=== PATIENT | female | born 1990 | race Two or more races ===

== ENCOUNTER 2018-12-31 18:52 | Inpatient (IN) | payer BC, OTHER ==
[~2018-12-31] VITALS: Ht 160 cm; Wt 105.3 kg
[2018-12-31 19:10] VITALS: BP 114/60
[2018-12-31] MEDS ORDERED: ETOMIDATE (2MG/ML) 20ML VIAL IV ONE (19:10)
[2018-12-31] MEDS ORDERED: SUCCINYLCHOLINE CHLORIDE 20 MG/ML 10ML VIAL IV ONE (19:10)
[2018-12-31] MEDS ORDERED: MIDAZOLAM DRIP 50 mg/50mL 50 ML IV ONE ×2 (19:26→21:50)
[2018-12-31] MEDS: MIDAZOLAM DRIP 50 mg/50mL 50 ML IV SCH (19:30)
[2018-12-31] MEDS ORDERED: fentaNYL Drip 2500mCg/250mlNS 250 ML IV ONE (19:45)
[2018-12-31] MEDS: NOREPINEPHRINE 8 MG/250ML KIT 250 ML IV SCH (19:45)
[2018-12-31] MEDS: fentaNYL Drip 2500mCg/250mlNS 250 ML IV SCH (19:45)
[2018-12-31] MEDS ORDERED: NOREPINEPHRINE 8 MG/250ML KIT 250 ML IV ONE (19:45)
[2018-12-31 19:46] LABS: Basophils # (auto) 0 uL; Basophils % (auto) 0.5 % (0.0-2.0); Eosinophils # (auto) 0 uL; Eosinophils % (auto) 0.1 % (0.0-7.0); Hematocrit 40.9 % (36.0-46.0); Hemoglobin 13.7 g/dL (12.2-16.2); Lymphocytes # (auto) 1.9 uL; Lymphocytes % (auto) 21.4 % (10.0-50.0); Mean Corpuscular Hemoglobin 28.5 pg (28.0-32.0); Mean Corpuscular Hgb Conc. 33.5 g/dL (32.0-36.0); Mean Corpuscular Volume 85.2 fL (80.0-100.0); Monocytes # (auto) 0.7 uL; Monocytes % (auto) 7.7 % (0.0-12.0); Neutrophils # (auto) 6.1 uL; Neutrophils % (auto) 70.3 % (37.0-80.0); Platelet Count (auto) 290 10^3/uL (140-450); Red Cell Distribution Width 13.9 % (11.8-14.3); White Blood Cell 8.7 10^3/uL (4.4-10.8)
[2018-12-31 20:02] LABS: Acetaminophen < 2.0 ug/mL (10-30); Albumin 3.4 g/dL (3.4-5.0); Anion Gap 15 (5-15); BUN/Creatinine Ratio 9.2; Blood Urea Nitrogen 9 mg/dL (7-18); Calcium 8.7 mg/dL (8.5-10.1); Carbon Dioxide 22 mmol/L (21-32); Chloride 102 mmol/L (98-107); GFR African American 86 mL/min; GFR Non-African American 71 mL/min; Glucose 193 mg/dL (74-106); Salicylate < 1.7 mg/dL (2.8-20.0); Sodium 139 mmol/L (136-145)
[2018-12-31 20:03] LABS: INR 1.02 (0.9-1.15); Partial Thromboplastin Time 23.7 sec (23.64-32.05)
[2018-12-31] MEDS ORDERED: PROPOFOL 100 ML IV ONE (20:08)
[2018-12-31] MEDS: PROPOFOL 100 ML IV SCH (20:10)
[2018-12-31 20:11] LABS: Alanine Aminotransferase 16 U/L (13-56); Alkaline Phosphatase 77 U/L (45-117); Aspartate Aminotransferase 12 U/L (15-37); Bilirubin, Total 0.3 mg/dL (0.2-1.0)
[2018-12-31 20:15] LABS: Potassium 2.8 mmol/L (3.5-5.1)
[2018-12-31] MEDS: POTASSIUM CHL 20MEQ/100ML 100 ML IV SCH ×2 (20:30→22:30)
[2018-12-31] MEDS ORDERED: cefTRIAXone 1GM/50ML D5W 50 ML IV ONE (20:30)
[2018-12-31] MEDS ORDERED: TETANUS-DIPTH-ACEL PERTUSSIS 0.5ML SYRG IM ONE (20:30)
[2018-12-31 20:49] VITALS: BP 100/37
[2018-12-31 22:14] VITALS: BP 92/50
[2018-12-31 22:23] LABS: Urine Bacteria NONE SEEN /hpf (None Seen); Urine Blood Negative /uL (Negative); Urine Mucus FEW (None Seen); Urine Specific Gravity 1.013 (1.001-1.035); Urine WBC 1 /hpf (0 - 5)
[2018-12-31] MEDS ORDERED: MAGNESIUM SULFATE 1GM/100ML 100 ML IV ONE (22:30)
[2018-12-31 22:35] LABS: Alcohol, Urine < 3.0 mg/dL (0-5); Barbiturate Scree,Urine NEGATIVE (NEGATIVE); Benzodiazephine Screen, Urine POSITIVE (NEGATIVE); Cannabinoid Screen, Urine POSITIVE (NEGATIVE); Cocaine Screen, Urine NEGATIVE (NEGATIVE); Opiate Scree,Urine NEGATIVE (NEGATIVE); Phencyclidine Screen, Urine NEGATIVE (NEGATIVE)
[2018-12-31 22:43] LABS: Amphetamine Screen, Urine NEGATIVE (NEGATIVE)
[2018-12-31] MEDS ORDERED: LIDOCAINE 2% (LOCAL ANESTH.) PF 5ml SDV ONE (23:47)
[2018-12-31 23:59] VITALS: BP 95/47
[2019-01-01] VITALS (75 sets, daily range): BP systolic 90–142; BP diastolic 36–77
[2019-01-01] MEDS ORDERED: LIDOCAINE 2%HCL (LOCAL ANESTH.) INJ 10ml MDV IJ ONE
[2019-01-01] MEDS ORDERED: NEOMYCIN-BACITRACIN-POLYM UNITDOSE PKG TOP OINT TOP ONE (00:30)
[2019-01-01] MEDS ORDERED: MUPIROCIN 2% OINT 15gm or 22gm TOP ONE (00:30)
[2019-01-01] MEDS ORDERED: NITROGLYCERIN 0.4 MG SL TAB SL PRN (04:15)
[2019-01-01] MEDS ORDERED: ONDANSETRON HCL 4 MG/2 ML VIAL IV PRN (04:15)
[2019-01-01] MEDS ORDERED: MORPHINE SULF INJ 2 MG/ML SYRINGE 1ML IV PRN (04:15)
[2019-01-01] MEDS: SODIUM CHLORIDE 0.9% 1,000 ML IV SCH ×3 (04:40→20:30)
--- NOTE | 2019-01-01 07:05 | NUR ---
FAMILY INTERVIEW CONTINUED... FAMILY STATES THAT PATIENT OFTEN SAYS THAT THEY WOULD BE BETTER OFF WITHOUT HER. FAMILY ALSO STATES THAT PATIENT IS UNDER A PSYCHIATRIST CARE FOR BIPOLAR/MANIC DEPRESSION AND ON MEDICATION HOWEVER; FAMILY STATES THAT PATIENT IS NON-COMPLIANT WITH MEDICATIONS. REFUSING TO TAKE MEDS WHEN DUE. PER FAMILY PATIENT HAS NEVER BEEN INSTITUTIONALIZED. FAMILY STATES THAT PATIENT CAN ONLY PERFORM ADL'S WHEN NOT IN MANIC EPISODE.
--- NOTE | 2019-01-01 07:05 | NUR ---
FAMILY INTERVIEW WENT OUT INTO THE WAITING AREA TO SPEAK WITH FAMILY. MOTHER AND STEPFATHER IN WAITING AREA AT THIS TIME. PER STEPFATHER PATIENT ENTERED THEIR BEDROOM YESTERDAY AP[address]OX [address] WITH LACERATIONS TO BOTH WRISTS AND BOTTLES OF PILLS IN HER HANDS. PATIENT WAS AAOX4 AT THE TIME SPEAKING TO PARENTS LIKE NOTHING HAPPENED. FATHER TOOK PATIENT TO THE CARE AND DROVE HER TO [facility]. DURING THE DRIVE TO [facility] THE PATIENT BECAME NON RESPONSIVE FOR WHAT THE STEP DAD STATED WAS APPROXIMATELY 5 MINUTES. FAMILY STATES THAT THIS TIME PATIENT'S FIRST TIME TRYING TO COMMIT SUICIDE
--- NOTE | 2019-01-01 07:25 | NUR ---
CARE ENDORSED TO LINDA RAI ALL QUESTIONS AND CONCERNS WERE ANSWERED
[2019-01-01] MEDS: NOREPINEPHRINE 8 MG/250ML KIT 250 ML IV SCH ×3 (08:44→21:43)
--- NOTE | 2019-01-01 08:45 | NUR ---
FAMILY AT BEDSIDE BOTH PATIENT'S MOTHER AND FATHER AT BEDSIDE, UPDATED ON PATIENT'S STATUS. PATIENT'S MOTHER KEVIN STATED THEY WOULD BE GOING HOME AND RETURNING IN A COUPLE HOURS. Addendum: 01/01/19 at 1615 by Analy Silverio RN ICU VISITOR GUIDE DISCUSSED WITH FAMILY AND PAMPHLET PROVIDED. MOTHER KEVIN VERBALIZED UNDERSTANDING.
[2019-01-01 08:59] LABS: Basophils # (auto) 0 uL; Basophils % (auto) 0.5 % (0.0-2.0); Eosinophils # (auto) 0 uL; Eosinophils % (auto) 0.5 % (0.0-7.0); Hematocrit 34.1 % (36.0-46.0); Hemoglobin 11.5 g/dL (12.2-16.2); Lymphocytes # (auto) 2.1 uL; Lymphocytes % (auto) 29.1 % (10.0-50.0); Mean Corpuscular Hemoglobin 28.5 pg (28.0-32.0); Mean Corpuscular Hgb Conc. 33.7 g/dL (32.0-36.0); Mean Corpuscular Volume 84.7 fL (80.0-100.0); Monocytes # (auto) 0.8 uL; Monocytes % (auto) 10.5 % (0.0-12.0); Neutrophils # (auto) 4.3 uL; Neutrophils % (auto) 59.4 % (37.0-80.0); Platelet Count (auto) 230 10^3/uL (140-450); Red Blood Cells 4.03 10^6/uL (4.0-5.20); Red Cell Distribution Width 14.2 % (11.8-14.3); White Blood Cell 7.2 10^3/uL (4.4-10.8)
[2019-01-01 09:15] LABS: Albumin 2.6 g/dL (3.4-5.0); Anion Gap 14 (5-15); BUN/Creatinine Ratio 4.2; Blood Urea Nitrogen 3 mg/dL (7-18); Calcium 7.5 mg/dL (8.5-10.1); Carbon Dioxide 21 mmol/L (21-32); Chloride 109 mmol/L (98-107); GFR African American 125 mL/min; GFR Non-African American 103 mL/min; Glucose 108 mg/dL (74-106); Potassium 3.2 mmol/L (3.5-5.1); Sodium 144 mmol/L (136-145)
[2019-01-01 09:18] LABS: Alanine Aminotransferase 14 U/L (13-56); Alkaline Phosphatase 62 U/L (45-117); Aspartate Aminotransferase 14 U/L (15-37); Bilirubin, Total 0.3 mg/dL (0.2-1.0); Total Protein 5.5 g/dL (6.4-8.2)
[2019-01-01] MEDS: MIDAZOLAM DRIP 50 mg/50mL 50 ML IV SCH ×3 (09:56→23:22)
[2019-01-01] MEDS: PROPOFOL 100 ML IV SCH ×3 (09:56→23:14)
[2019-01-01] MEDS ORDERED: LEVOFLOXACIN 500MG 100 ML IV SCH (10:00)
[2019-01-01] MEDS ORDERED: LEVOFLOXACIN 750MG 150 ML IV SCH (10:00)
[2019-01-01] MEDS: PANTOPRAZOLE 40 MG/10 ML VIAL INJ IV SCH (10:06)
--- NOTE | 2019-01-01 10:58 | NUR ---
POISON CONTROL GABRIELLE UPDATED ON PATIENT'S STATUS. GABRIELLE IS RECOMMENDING A REPEAT SHIVA TO MEASURE QT; QT < 500 POTASSIUM > 4.0 CALCIUM > 9 MAGNESIUM > 2 GABRIELLE'S PHONE NUMBER IS . WILL DISCUSS POISON CONTROL RECOMMENDATIONS WITH HOSPITALIST.
--- NOTE | 2019-01-01 11:11 | NUR ---
MED REC VERIFIED BY PATIENT'S MOTHER.
[2019-01-01] MEDS ORDERED: LAMO150T2 PO (11:14)
[2019-01-01] MEDS ORDERED: ESCI5TAB PO (11:14)
[2019-01-01] MEDS ORDERED: RISP0.5T12 PO (11:14)
[2019-01-01] MEDS ORDERED: DIPH25CA66 PO (11:14)
--- NOTE | 2019-01-01 11:50 | NUR ---
HOSPITALIST AT BEDSIDE DR REED UPDATED ON PATIENT'S STATUS, DRIPS, LABS AND POISON CONTROL RECOMMENDATIONS. ORDERS RECEIVED AND WILL BE CARRIED OUT.
[2019-01-01] MEDS: POTASSIUM CHL 20MEQ/100ML 100 ML IV SCH ×2 (14:43→16:44)
--- NOTE | 2019-01-01 16:13 | NUR ---
IV removal IVs to bilateral feet discontinued with sterile technique, catheters fully intact. Pressure dressing applied to sites. Patient tolerated procedure well, no s/s noted of pain or discomfort.
--- NOTE | 2019-01-01 16:18 | NUR ---
FAMILY AT BEDSIDE/POISON CONTROL FAMILY MEMBERS AT BEDSIDE. GABRIELLE FROM POISON CONTROL UPDATED ON PATIENT'S STATUS.
--- NOTE | 2019-01-01 16:30 | NUR ---
NOTE LINKED SUICIDE RISK ASSESSMENT PATIENT ADMITTING DIAGNOSIS SUICIDE ATTEMPT AND OVERDOSE. UNABLE TO ASSESS AT THIS TIME - PATIENT INTUBATED AND SEDATED. Addendum: 01/01/19 at 1631 by Analy Silverio RN Amended: Links added.
--- NOTE | 2019-01-01 18:30 | NUR ---
INITIAL CONTACT ASSUMED CARE OF PATIENT PATIENT ARRIVED VIA GURNEY FROM THE ER INTUBATED AND SEDATED ON PROPOFOL, VERSED AND FENTANYL. SEE IV SPREADSHEET FOR MEDICATION AND TITRATION. PATIENT IS AAO TO SELF WILL RESPOND TO CALL OF NAME WITH UPPER BODY MOVEMENT AND TO PAINFUL STIMULATION WITH FACIAL GRIMACE. VITAL SIGNS WITHIN NORMAL LIMITS. NO S/S OF DISTRESS NOTED. PATIENT DOES NOT APPEAR TO BE IN PAIN AT THIS TIME. NOTED PIN POINT PUPILS. RIBEIRO CATHETER IN PLACE AND DRAINING TO GRAVITY, BANDAGES BILATERAL WRISTS, TRIPLE LUMEN PICC TO LEFT IJ, 20 G IV LEFT FOOT, 20 G IV RGT FOOT, 20 G IV LEFT BREAST, 20 G IV LEFT HAND, PATENT, INTACT AND ASYMPTOMATIC. OG TUBE TO LIS. VENTILATOR PLUGGED INTO RED OUTLET PER VAP PROTOCOL. AMBU BAG AT BEDSIDE, SIDE RAILS UP X TWO, PATIENT IS IN FULL VIEW OF NURSES STATION, SAFETY MAINTAINED, WILL CONTINUE TO MONITOR. PER ER NURSE ELVER, FAMILY IS THE ICU WAITING AREA. Addendum: 01/01/19 at 1957 by Korina Eddy RN INITIAL CONTACT IS INCORRECT TIME SHOULD BE 0630 (01/01/19)
--- NOTE | 2019-01-01 20:00 | NUR ---
OPEN ASSUMED CARE OF FEMALE PT ORALLY INTUBATED. PT SEDATED ON VERSED GTT15 MG/HR, AND DIPRIVAN GTT25 MCG/KG/MIN. PT DOES NOT OPEN EYES OR FOLLOW COMMANDS. PT GRIMACE TO TACTILE STIMULI, OTHERWISE NON RESPONSIVE. PT WITH OGT TO LIS WITH SMALL AMOUNT OF POSS FOOD PARTICLES DRAINING. PLACEMENT VERIFIED. SR ON BULK MAIL TECHNICIAN. LEVOPHED GTT INFUSING AT 20 MCG/MIN. L. IJ TLC IN PLACE WITH SEDATION, LEVOPHED GTT'S AND NS AT 75 ML/HR. ALL PORTS PATENT. DRESSING CDI. RIBEIRO TO GRAVITY DRAINING CLEAR YELLOW URINE. MARJORIE WRIST DRESSINGS IN PLACE OVER LACERATIONS/ WITH SUTURES INTACT. DRESSING CDI WITH NO ACTIVE BLEEDING. MARJORIE SCD'S IN PLACE. NO INDICATION OF PAIN OBSERVED. PT REPOSITIONED WITH PILLOWS USED TO OFFLOAD BONY PROMINENCES. BED IN LOWEST LOCKED POSITION. HOB ELEVATED 40 DEGREES. PT IN FULL VIEW OF RN STATION. WILL CONTINUE TO MONITOR.
--- NOTE | 2019-01-01 20:24 | NUR ---
FAMILY VISIT PT MOTHER TO UNIT FOR VISIT. PLAN OF CARE DISCUSSED.
[2019-01-01] MEDS: fentaNYL Drip 2500mCg/250mlNS 250 ML IV SCH (21:42)
[2019-01-02] VITALS (92 sets, daily range): BP systolic 92–139; BP diastolic 39–84
--- NOTE | 2019-01-02 02:30 | NUR ---
Patient bathe/linen change Patient given complete bath. Skin integrity assessed for any changes. Linens changed. Patient repositioned for comfort. HAIR WASHED AND BRUSHED.
--- NOTE | 2019-01-02 03:37 | NUR ---
NEURO TITRATING DOWN ON SEDATION. PT OBSERVED TO HAVE SOME MILD TREMOR LIKE MOVEMENTS. WILL CONTINUE TO CLOSELY MONITOR.
[2019-01-02 03:51] LABS: Basophils # (auto) 0 uL; Basophils % (auto) 0.7 % (0.0-2.0); Eosinophils # (auto) 0.1 uL; Hematocrit 35.4 % (36.0-46.0); Mean Corpuscular Hemoglobin 28.7 pg (28.0-32.0); Mean Corpuscular Volume 84.3 fL (80.0-100.0); Monocytes # (auto) 0.6 uL; Monocytes % (auto) 9.3 % (0.0-12.0); Neutrophils # (auto) 4.1 uL; Platelet Count (auto) 244 10^3/uL (140-450); Red Cell Distribution Width 14.5 % (11.8-14.3); White Blood Cell 6.8 10^3/uL (4.4-10.8)
[2019-01-02] MEDS: PROPOFOL 100 ML IV SCH (04:01)
[2019-01-02 04:36] LABS: Alanine Aminotransferase 12 U/L (13-56); Albumin 2.7 g/dL (3.4-5.0); Anion Gap 12 (5-15); Aspartate Aminotransferase 12 U/L (15-37); BUN/Creatinine Ratio 1.5; Blood Urea Nitrogen 1 mg/dL (7-18); Carbon Dioxide 20 mmol/L (21-32); Chloride 113 mmol/L (98-107); GFR African American 132 mL/min; GFR Non-African American 109 mL/min; Glucose 115 mg/dL (74-106); Potassium 3.6 mmol/L (3.5-5.1); Sodium 145 mmol/L (136-145)
[2019-01-02 04:39] LABS: Alkaline Phosphatase 66 U/L (45-117); Bilirubin, Total 0.3 mg/dL (0.2-1.0); Total Protein 5.7 g/dL (6.4-8.2)
[2019-01-02] MEDS: NOREPINEPHRINE 8 MG/250ML KIT 250 ML IV SCH (05:00)
--- NOTE | 2019-01-02 07:35 | NUR ---
Opening Shift Note Assumed care of patient, patient sedated, mechanically ventilated. No S/S of distress/SOB or pain noted. Duarte catheter patent and draining to gravity. OGT connected to LIS with minimal drainage. Fall and safety precautions in place. Will continue to monitor for changes Q1hr and PRN.
[2019-01-02] MEDS: SODIUM CHLORIDE 0.9% 1,000 ML IV SCH (08:41)
--- NOTE | 2019-01-02 09:00 | NUR ---
Family updated on pt status Family of KIRIT ROACH at bedside and updated on patient's status and condition. All questions and concerns addressed. Patient's mother Kandace verbalized understanding.
[2019-01-02] MEDS: PANTOPRAZOLE 40 MG/10 ML VIAL INJ IV SCH (10:00)
--- NOTE | 2019-01-02 10:31 | NUR ---
VOMIT PATIENT VOMIT WHITE/CHUNKY VOMITUS - ONE YELLOW PIECE OF WHAT APPEARED TO BE FOOD REMOVED FROM MOUTH. PATIENT RECOVERED AND CLEANSED. FAMILY AT BEDSIDE AND NOTIFIED, R.T. AWARE. HOSPITALIST NOTIFIED. NO ORDERS AT THIS TIME.
--- NOTE | 2019-01-02 11:56 | NUR ---
WOUND CARE NOTE: Wound care in to see patient per wound care request regarding low Edy score of 12 and intubation status , putting patient to high risk for skin breakdown. Patient is 28 y/o female with admitting diagnosis of Acute Respiratory Failure. Patient has history of depression. Patient is resting in ICU bed in Rm 105. She's intubated and mechanically ventilated. Patient appears to be in no pain using Nevarez Simon Faces Pain Scale. Skin assessment done with the assistance of patient's nurse, LINDA Beckford. No open wound noted other than bilateral wrist sutured laceration with C/D/I dressing ; reports of OD, suicidal attempt. No pressure injury noted. She's receiving BID/PRN cleaning and application of Barrier cream to sacrum as preventative with protective Opti foam sacral dressing. Repositioned patient for comfort facing her Lt. side, redistributed pressure points with pillows. Patient tolerated well. RECOMMENDATION: BID/PRN cleaning and application of Barrier cream to sacral/buttocks as preventative, Dietary consult for low Edy score, frequent turning and repositioning schedule as condition permits, redistribute pressure points with pillows, elevate heels on pillows, continue monitoring by wound care while patient is mechanically ventilated. Addendum: 01/02/19 at 1638 by Essence Lewis RN Amended: Links added.
--- NOTE | 2019-01-02 15:21 | NUR ---
POISON CONTROL ABDON UPDATED ON PATIENT'S STATUS, VS.
--- NOTE | 2019-01-02 18:00 | NUR ---
WOUND CARE TO BILATERAL WRISTS AND PICTURES TAKEN PERFORMED. SUTURE SITES CLEAN, DRY AND INTACT - NO REDNESS, SWELLING OR DRAINAGE NOTED ON BOTH WRIST SUTURE SITES. PATIENT ATTEMPTED TO PULL ETT WITHOUT MITTENS, PATIENT REORIENTED AND BILATERAL MITTENS PLACED FOR PATENT PROTECTION. PICTURE DOCUMENTATION FORMS SIGNED AND PLACED IN WOULD CARE BOX.
[2019-01-02] MEDS: LORazepam 2MG/ML-1ML VIAL IV PRN ×2 (18:15→21:30)
--- NOTE | 2019-01-02 18:16 | NUR ---
NEURO PATIENT NOT FULLY AWAKE BUT ATTEMPTING TO PULL ON ETT, PATIENT ORIENTED TO PERSON, PLACE AND SITUATION, AFTER SEVERAL ATTEMPTS TO CALM PATIENT DOWN WITH NO SUCCESS, PATIENT MEDICATED ORDERED BY PHYSICIAN.
[2019-01-02] MEDS: DexMEDEtomidine 400 MCG in D5W 5% 96 ML IV SCH (19:44)
[2019-01-03] VITALS (85 sets, daily range): BP systolic 90–145; BP diastolic 48–113
[2019-01-03] MEDS: LORazepam 2MG/ML-1ML VIAL IV PRN ×2 (00:18→03:40)
--- NOTE | 2019-01-03 00:19 | NUR ---
AGITATION PRIMARY RN ON LUNCH. PT ON PRECEDEX GTT ATTEMPTING TO GET UP FROM BED ON [facility]. VENT. MEDICATED WITH ATIVAN SIVP PER ORDER. WILL CONTINUE TO MONITOR.
[2019-01-03] MEDS: DexMEDEtomidine 400 MCG in D5W 5% 96 ML IV SCH (02:58)
[2019-01-03 03:54] LABS: Basophils # (auto) 0 uL; Basophils % (auto) 0.6 % (0.0-2.0); Eosinophils # (auto) 0.1 uL; Eosinophils % (auto) 1.7 % (0.0-7.0); Hematocrit 32.1 % (36.0-46.0); Hemoglobin 11.6 g/dL (12.2-16.2); Lymphocytes # (auto) 2.2 uL; Lymphocytes % (auto) 36.7 % (10.0-50.0); Mean Corpuscular Hemoglobin 30.4 pg (28.0-32.0); Mean Corpuscular Hgb Conc. 36.1 g/dL (32.0-36.0); Mean Corpuscular Volume 84.3 fL (80.0-100.0); Monocytes # (auto) 0.6 uL; Monocytes % (auto) 9.7 % (0.0-12.0); Neutrophils # (auto) 3.1 uL; Neutrophils % (auto) 51.3 % (37.0-80.0); Nucleated Red Blood Cells % 0.2 %; Platelet Count (auto) 240 10^3/uL (140-450); Red Blood Cells 3.82 10^6/uL (4.0-5.20); Red Cell Distribution Width 14.7 % (11.8-14.3); White Blood Cell 6.1 10^3/uL (4.4-10.8)
[2019-01-03 04:23] LABS: Anion Gap 9 (5-15); Blood Urea Nitrogen 1 mg/dL (7-18); Calcium 7.9 mg/dL (8.5-10.1); Carbon Dioxide 23 mmol/L (21-32); Chloride 113 mmol/L (98-107); Glucose 102 mg/dL (74-106); Potassium 3.4 mmol/L (3.5-5.1); Sodium 145 mmol/L (136-145)
[2019-01-03 04:25] LABS: BUN/Creatinine Ratio 1.5; GFR African American 132 mL/min; GFR Non-African American 109 mL/min
--- NOTE | 2019-01-03 08:45 | NUR ---
RESPIRATORY Paged respiratory therapist Darlin to inform her that patient is ready to be placed on CPAP, awaiting for call back.
--- NOTE | 2019-01-03 08:50 | NUR ---
RESPIRATORY Darlin RT called this RN and aware that patient is ready to CPAP. RT states " Will be there shortly to place on CPAP mode." Awaiting for RT to arrive to room 105.
--- NOTE | 2019-01-03 09:06 | NUR ---
OPENING NOTE Received patient on mechanical ventilator sedated on Precedex at .2mcg. Patient responds to tactile/verbal stimuli, opens eyes to command, follows simple commands, pupils reactive to light, positive gag reflex. Sinus rhythm in the 60's on bedside monitor, pulses palpable on upper/lower extremities and no edema observed. Abdomen soft, nontender and non distended, bowel sounds present with last bowel movement being unknown. Duarte catheter draining to gravity clear yellow urine. Left IJ(TLC): good blood return and flushes easily infusing normal saline at 75ml/hr. Bilateral wrist dressings clean, dry and intact. SCD's on. No signs and symptoms of respiratory distress. Call light within reach and bed at lowest position. Anil LOCO at bedside for suicide watch. Will continue to monitor patient closely.
--- NOTE | 2019-01-03 09:15 | NUR ---
RESPIRATORY Darlin RT at bedside and placed patient on CPAP mode.Patient awake for a few minutes but then falls asleep and becomes apneic. RT Darlin and this RN coaching patient to keep eyes open and try to stay awake, patient tolerating CPAP before becoming apneic again. RT Darlin placed patient back to previous vent settings and states " we will try again once patient is more awake."
--- NOTE | 2019-01-03 09:15 | NUR ---
Respiratory note: PT WAS AWAKE AND FOLLOWING COMMANDS. ATTEMPTED CPAP TRIAL, PT WAS AWAKE FOR A FEW MINUTES BUT FELL ASLEEP AND BECAME APNEIC. RT AND RN CHOLO AT BEDSIDE COACHING PT TO OPEN EYES AND STAY AWAKE, TOLERATING CPAP FOR A FEW MINUTES THEN BECOMING APNEIC AGAIN. PLACED PT BACK ON AC MODE. WILL ATTEMPT AGAIN WHEN PT IS MORE AWAKE/ALERT. BREATH SOUNDS CLEAR/DIMINISHED THROUGHOUT, SUCTION NOT INDICATED AT THIS TIME. ALARMS VERIFIED AND AUDIBLE. SITTER AT BEDSIDE. WILL CONTINUE TO MONITOR.
[2019-01-03] MEDS: PANTOPRAZOLE 40 MG/10 ML VIAL INJ IV SCH (09:59)
--- NOTE | 2019-01-03 10:15 | NUR ---
assessment Patient is a 28 year old female who is on a vent. Patients post discharge needs to be determined prior to discharge and after extubation. Addendum: 01/03/19 at 1744 by Raine MELTON Amended: Links added.
--- NOTE | 2019-01-03 10:24 | NUR ---
POISON CONTROL Received phone call from Neal from poison control wanting an update on patient condition. Informed this RN once patient is extubated is is clear from there prospective.
--- NOTE | 2019-01-03 12:05 | NUR ---
MD Dr. Vilchis at bedside updated on patient condition with new orders, MD to input into system. MD spoke to patients mother, whom is at bedside, regarding plan of care. Questions/concerns answered by .
--- NOTE | 2019-01-03 12:22 | NUR ---
Respiratory note: PLACED PT ON CPAP. PT MORE AWAKE AND ALERT, FAMILY AT BEDSIDE. PT TOLERATING CPAP WELL. NOTIFIED RN CHOLO OF CHANGES. ALARMS SET AND AUDIBLE. WEANING PARAMETERS GATHERED: NIF -25, VC 2.1L, RSBI 45, LEAK 81 ML, ABG TO FOLLOW. BREATH SOUNDS CLEAR/DIMINISHED THROUGHOUT. WILL CONTINUE TO MONITOR.
--- NOTE | 2019-01-03 12:22 | NUR ---
RESPIRATORY RT Darlin placed patient on CPAP mode. Patient appears to be tolerating, family at bedside.
--- NOTE | 2019-01-03 12:27 | NUR ---
Nutrition Assessment Notes please see attached link for complete assessment Est. Needs ABW [id number] kcal (17-20 kcal/kgBW), 78-85 gms pro (1.0-1.1 gms/kgBW). Will continue to monitor pertinent labs and reassess nutrient need prn Addendum: 01/03/19 at [address] Amended: Links added.
[2019-01-03] MEDS ORDERED: POTASSIUM CHLORIDE 20 MEQ, LIDOCAINE 1% (LOCAL ANESTH.) 2 ML in SODIUM CHL 0.9% 100 ML IV ONE (12:30)
--- NOTE | 2019-01-03 13:40 | NUR ---
Respiratory note: EXTUBATED PT WITH LINDA TOURE AT BEDSIDE. NO STRIDOR NOTED POST-EXTUBATION. PT NOW ON COOL AEROSOL MASK 30%, HR 78, RR 14, POX 99%. NO S/S OF RESPIRATORY DISTRESS.
--- NOTE | 2019-01-03 13:40 | NUR ---
EXTUBATION Patient was extubated during this time that the primary nurse was at lunch. Patient tolerated well and placed on cool mist 30% mask. Darlin MCKEON at bedside during extubation.
[2019-01-03] MEDS ORDERED: EPINEPHrine HCL 0.5 ML NEB NEB ONE (16:15)
[2019-01-03] MEDS ORDERED: EPINEPHrine HCL 0.5 ML NEB ONE (16:18)
[2019-01-03] MEDS ORDERED: methylPREDNISolone SOD SUCC 125 MG/2 ML VL IV ONE ×2 (16:30→21:00)
--- NOTE | 2019-01-03 19:45 | NUR ---
RESP PT ON COOL MIST MASK S/P EXTUBATION THIS AFTERNOON WITH SOME STRIDOR AUSCULTATED. PT IN NO DISTRESS AT THIS TIME RR 18 O2 SATS 98%. EDUCATED PT TO MINIMIZE TALKING AND BENEFITS OF COOL MIST MASK. WILL NURIA Ortiz
--- NOTE | 2019-01-03 19:50 | NUR ---
OPEN ASSUMED CARE OF FEMALE PT S/P EXTUBATION TODAY. PT ALERT AND ORIENTED X 3. PT CALM AND COOPERATIVE. O2 VIA COOL MIST MASK 30%. STRIDOR AUSCULTATED IN MARJORIE UPPER LOBES AND TRACHEA. PT IN NO DISTRESS. SR ON WOOL WASHING MACHINE OPERATOR. L. IJ TLC CATHETER IN PLACE WITH CDI DRESSING. ALL PORTS PATENT. PT WITH DRESSINGS TO MARJORIE WRISTS OVER SELF INFLICTED LACERATIONS PRESENT ON ADMISSION. DRESSINGS CDI OVER SUTURES. PT WITH SITTER AT BEDSIDE. RIBEIRO TO GRAVITY DRAINING CLEAR YELLOW URINE. PT DENIES PAIN. BED IN LOWEST LOCKED POSITION. SIDE RAILS UP X 2. CALL MELGAR IN REACH. PT IN FULL VIEW OF RN STATION. WILL CONTINUE TO MONITOR.
--- NOTE | 2019-01-03 20:00 | NUR ---
RT TO BEDSIDE TO EVALUATE
--- NOTE | 2019-01-03 20:20 | NUR ---
AUTO MECHANIC SUPERVISOR PAGE PER RT NO SCHEDULED BREATHING TX'S ON ORDER. CARINA MAURICE PAGED.
--- NOTE | 2019-01-03 20:25 | NUR ---
FAMILY VISIT FAMILY TO BEDSIDE FOR VISIT. UPDATED PT MOTHER REGARDING PLAN OF CARE.
--- NOTE | 2019-01-03 21:00 | NUR ---
CARINA MAURICE CALLED BACK UPDATED TELECOMMUNICATIONS ANALYST REGARDING STRIDOR. CURRENT O2 SATS AND RR. ORDERS RECEIVED.
[2019-01-03] MEDS ORDERED: methylPREDNISolone SOD SUCC 125 MG/2 ML VL ONE (21:13)
[2019-01-03] MEDS: SODIUM CHLORIDE 0.9% 1,000 ML IV SCH ×2 (22:00→22:55)
--- NOTE | 2019-01-03 23:00 | NUR ---
RE-ASSESS RESP PT REMAINS ON COOL MIST MASK 30% RR AND O2 SATS WNL. STRIDOR STILL AUSCULTATED UPPER LOBES AND TRACHEA IMPROVED FROM EARLIER ASSESSMENT. WILL CONTINUE TO CLOSELY MONITOR.
[2019-01-03] MEDS: ALBUTEROL SULF 2.5 MG/0.5ML(0.5%) NEB SOLN NEB SCH (23:38)
[2019-01-04] VITALS (20 sets, daily range): BP systolic 104–122; BP diastolic 51–80
--- NOTE | 2019-01-04 03:53 | NUR ---
HYGIENE PT LINENS CHANGED. PT ABLE TO BRUSH OWN HAIR. BRUSHED TEETH.
[2019-01-04 04:03] LABS: Basophils # (auto) 0 uL; Basophils % (auto) 0.3 % (0.0-2.0); Eosinophils # (auto) 0 uL; Hematocrit 37.2 % (36.0-46.0); Hemoglobin 12.5 g/dL (12.2-16.2); Lymphocytes # (auto) 0.6 uL; Lymphocytes % (auto) 9.7 % (10.0-50.0); Mean Corpuscular Hemoglobin 28.3 pg (28.0-32.0); Mean Corpuscular Hgb Conc. 33.6 g/dL (32.0-36.0); Mean Corpuscular Volume 84.2 fL (80.0-100.0); Monocytes # (auto) 0.1 uL; Monocytes % (auto) 1.2 % (0.0-12.0); Neutrophils # (auto) 5.2 uL; Neutrophils % (auto) 88.8 % (37.0-80.0); Platelet Count (auto) 261 10^3/uL (140-450); Red Blood Cells 4.42 10^6/uL (4.0-5.20); Red Cell Distribution Width 14.2 % (11.8-14.3); White Blood Cell 5.8 10^3/uL (4.4-10.8)
[2019-01-04 04:29] LABS: Anion Gap 10 (5-15); BUN/Creatinine Ratio 5.8; Blood Urea Nitrogen 4 mg/dL (7-18); Calcium 8.1 mg/dL (8.5-10.1); Carbon Dioxide 24 mmol/L (21-32); Chloride 109 mmol/L (98-107); GFR African American 129 mL/min; GFR Non-African American 107 mL/min; Glucose 156 mg/dL (74-106); Potassium 3.8 mmol/L (3.5-5.1); Sodium 143 mmol/L (136-145)
[2019-01-04] MEDS: ALBUTEROL SULF 2.5 MG/0.5ML(0.5%) NEB SOLN NEB SCH ×3 (06:53→19:08)
--- NOTE | 2019-01-04 09:40 | NUR ---
MD Dr. Avendaño at bedside updated on patient condition with new orders, this RN to input into system. MD spoke to patient regarding plan of care and questions/concerns answered by MD.
[2019-01-04] MEDS: FAMOTIDINE (10MG/ML) 2ML VL IV SCH (10:02)
--- NOTE | 2019-01-04 10:45 | NUR ---
ACTIVITY Patient requested to get out of bed and sit in chair. Assisted this patient and patient tolerated well.
[2019-01-04] MEDS: SODIUM CHLORIDE 0.9% 1,000 ML IV SCH (11:50)
--- NOTE | 2019-01-04 15:45 | NUR ---
DISCONTINUED WILHELM Discontinued wilhelm catheter, catheter intact output 2400 clear yellow urine. Patient tolerated well.
--- NOTE | 2019-01-04 16:30 | NUR ---
REPORT Report given to Leona MCKEON, who will continue plan of care when patient arrives to room 293B.
--- NOTE | 2019-01-04 17:15 | NUR ---
TRANSFERRED Transferred patient to room 293B via wheelchair accompanied by patients mother Kandace and rocio Bridget. All belonging with patient.
--- NOTE | 2019-01-04 17:20 | NUR ---
PATIENT BROUGHT TO ROOM 293B, WITH ALL BELONGINGS. NO SIGNS OR COMPLAINTS OF PAIN OR DISTRESS. FAMILY AT BEDSIDE. SITTER AT BEDSIDE. WILL CONTINUE TO MONITOR.
--- NOTE | 2019-01-04 18:00 | NUR ---
PATIENT AMBULATED TO THE BATHROOM AND URINATED.
[2019-01-04] MEDS: ACETAMINOPHEN 325 MG TAB PO PRN (18:16)
--- NOTE | 2019-01-04 20:00 | NUR ---
Opening Shift Note Assumed care of patient, awake and alert. No S/S of distress/SOB or pain. Instructed on POC and to call for assist PRN, will continue to monitor for changes Q1hr and PRN. Several family members at patient's bedside. Patient complains of discomfort to Trilple Lumen Catherter to left IJ. She agreed to rest in bed and sleep with her head leaning to right. No suicide ideations at this time. Patient inquired about her discharge information and the Psych evaluation. Patient informed that her Psych evaluation will be scheduled tomorrow and plans for discharge will be discussed further afterwards. Patient verbalized understanding.
[2019-01-05] MEDS: ALBUTEROL SULF 2.5 MG/0.5ML(0.5%) NEB SOLN NEB SCH ×4 (01:02→18:37)
[2019-01-05] MEDS: SODIUM CHLORIDE 0.9% 1,000 ML IV SCH (01:35)
--- NOTE | 2019-01-05 07:35 | NUR ---
RECEIVED REPORT FROM NIGHT NURSE. PATIENT RESTING IN BED, NO DISTRESS NOTED. SITTER AT BEDSIDE. WILL CONTINUE TO MONITOR.
[2019-01-05 09:00] VITALS: BP 123/77
--- NOTE | 2019-01-05 09:50 | NUR ---
PLACED CALL TO TELE PSYCH. PATIENT IS 4TH IN LINE TO HAVE CONSULT.
[2019-01-05] MEDS: FAMOTIDINE (10MG/ML) 2ML VL IV SCH (10:17)
--- NOTE | 2019-01-05 12:10 | NUR ---
DOCTOR SANTANA AT BEDSIDE.
[2019-01-05 13:00] VITALS: BP 124/80
[2019-01-05 17:00] VITALS: BP 126/77
[2019-01-05] MEDS: LORazepam 2MG/ML-1ML VIAL IV PRN (21:04)
[2019-01-05 22:17] VITALS: BP 116/76
[2019-01-06] MEDS: ALBUTEROL SULF 2.5 MG/0.5ML(0.5%) NEB SOLN NEB SCH ×4 (00:06→18:46)
--- NOTE | 2019-01-06 06:44 | NUR ---
TELE PSYC CONSULT VANITA FROM [facility] [place] AND STATED THAT THEY WILL HAVE AN MD TO DO THE CONSULT AFTER 0700 AND TO HAVE THE TELE MONITOR SET UP AT THIS TIME. CONSULT CAN BE DONE ANY TIME BETWEEN [id number]
--- NOTE | 2019-01-06 07:01 | NUR ---
TELE PSYCH MONITOR SET UP IN FRONT OF PATIENT.
--- NOTE | 2019-01-06 07:02 | NUR ---
Respiratory note: PT REFUSED SCHEDULED MEDNE[facility] TX AT THIS TIME, AWAITING FOR TELE PSYCH CONSULT. HR 84, RR 16, POX 95% ON ROOM AIR. BREATH SOUNDS CLEAR THROUGHOUT. NO S/S OF RESPIRATORY DISTRESS. WROTE RT NAME AND PAGER NUMBER ON WHITEBOARD, ADVISED PT TO CALL FOR RT IF SHE CHANGES HER MIND. WILL RETURN FOR NEXT SCHEDULED TX.
--- NOTE | 2019-01-06 07:42 | NUR ---
TELE PSYCH SPOKE WITH TELE PSYCH MD OVER THE PHONE. GAVE REPORT, VS, AND MEDICATIONS.
--- NOTE | 2019-01-06 07:43 | NUR ---
PATIENT'S PSYCHIATRIST RECEIVED A PAPER FROM PLANT ENGINEER NURSE WITH INFORMATION FOR PATIENT'S PSYCHIATRIST THAT SHE RECEIVED FROM PATIENT'S MOTHER. DR. ALVARADO [facility] [id number] [address]
[2019-01-06 09:00] VITALS: BP 118/80
[2019-01-06] MEDS: FAMOTIDINE (10MG/ML) 2ML VL IV SCH (10:15)
[2019-01-06] MEDS: LORazepam 2MG/ML-1ML VIAL IV PRN (10:15)
--- NOTE | 2019-01-06 12:00 | NUR ---
5150 wrote discharge order for patient and put her on 5150. Floor nurse was informed that 5150 was needed for patient.
--- NOTE | 2019-01-06 14:38 | NUR ---
Monica, primary RN to fax [phone] application and tele psych to me so I can [facility] to [facility]
--- NOTE | 2019-01-06 15:12 | NUR ---
re-assessment Patient is now downgraded to the floor. Patient informed me she was having a 5 day manic attack and then was coming down and was feeling depressed and worthless. Patient has a history of Bipolar. Patient informed me she felt so bad she cut her wrist and took all her medications. Patient informed me she has a psychologist Dr Nevarez at [facility] since 2011. Patient needs her medications re-adjusted. Patient informed me she has not seen him in 3 months. Patient will need 51/50 and psych placement. Patient verbalized understanding and agreed to discharge plan. Addendum: 01/07/19 at 1517 by Raine MELTON Amended: Links added.
--- NOTE | 2019-01-06 15:33 | NUR ---
[facility] WILL CALL
--- NOTE | 2019-01-06 16:40 | NUR ---
no tele psych or 5150 as of yet from the unit.
[2019-01-06 17:00] VITALS: BP 118/91
[2019-01-06] MEDS: ACETAMINOPHEN 325 MG TAB PO PRN (18:59)
--- NOTE | 2019-01-06 20:00 | NUR ---
open note assumed care of pt. awake, alert and oriented x4. family at bedside. pt on room air, no distress noted or expressed. pt and family updated on plan of care. pt has sitter at bedside. pt requests ativan for anxiety, previous order marked "complete" in AUG. this nurse paged hospitalist for prn order. will await response. in the meantime call light in reach. will round q1hr and prn.
[2019-01-06] MEDS ORDERED: LORazepam 2MG/ML-1ML VIAL IV PRN (20:15)
[2019-01-06 22:00] VITALS: BP 120/94
[2019-01-07] MEDS: ALBUTEROL SULF 2.5 MG/0.5ML(0.5%) NEB SOLN NEB SCH ×4 (00:21→18:45)
[2019-01-07 05:00] VITALS: BP 111/63
--- NOTE | 2019-01-07 08:30 | NUR ---
Opening Shift Note Assumed care of patient, awake and alert. Sitter and family at bedside. No S/S of distress/SOB or pain. Instructed on POC and to call for assist PRN, will continue to monitor for changes Q1hr and PRN.
[2019-01-07 09:00] VITALS: BP 134/85
[2019-01-07 10:53] VITALS: BP 134/85
--- NOTE | 2019-01-07 11:45 | NUR ---
MITA PAGED PER PT AND FAMILY REQUEST
--- NOTE | 2019-01-07 12:00 | NUR ---
PREMIUM CANCELLATION CLERK AT BEDSIDE SPEAKING WITH PATIENT AND PATIENTS MOM.
--- NOTE | 2019-01-07 12:32 | NUR ---
MITA BEDSIDE TO PRAY WITH PATIENT AND FAMILY
--- NOTE | 2019-01-07 12:44 | NUR ---
faxed psych packet to [facility].
[2019-01-07 13:00] VITALS: BP 128/75
--- NOTE | 2019-01-07 13:50 | NUR ---
ROUNDING Dr Mame fonseca. Patient complaining about left EJ, requesting to have it removed. MD gave verbal order to remove and insert peripheral IV.
--- NOTE | 2019-01-07 14:02 | NUR ---
Nutrition Follow-up Notes Wt.: 105.3 kg today. Pt's successfully extubated (01/03/19), asleep, no immediate family member at bedside except for sitter when rounded this morning. Pt's no signs of distress noted earlier, currently on Regular diet with inadequate PO intake aeb 50% ave. consumed meals (x6) in last 2.5 days. Noted pt's for active Psychiatric and Wound consults. Est. Needs ABW [id number] kcal (17-20 kcal/kgBW), 78-85 gms pro (1.0-1.1 gms/kgBW). Will continue to monitor pertinent labs and reassess nutrient need prn Labs: No new labs since 01/04/19 Gluc 159 H, Cl 109 H, BUN 4 L, Ca 8.1 L, AST 12 ALT 12 L , Tpro 5.7 L, Alb 2.7 L Skin: Edy scale 21, low risk, pt's L, R wrist laceration, dressing in place per local telephone operator. Pls refer to chief learning officer's notes 01/02/19 for further details re: tx plans. GI: Pt had BM this morning per local telephone operator. PES: Altered nutrition related lab values r/t acute/chronic medical condition aeb hyperglycemia,hypocalcemia mod hypoalb Obesity r/t food intake more than body requirement aeb 201% IBW, BMI 41.1 kg/m2 and increased body adiposity Will continue to monitor PO intake, skin status, pertinent labs and weight trend. F/u in 3 to 5 days. Rec.: 1.) Continue close supervision and feeding assistance prn during meals. 2.) consider to continue monitoring pertinent labs; If Albumin level continues trending down, consider Prostat 1 pkt BID. 3.) Consider daily MVI with minerals and Asc acid 500 mgs BID. 4.) Refer pt to RD for further nutrition education and weight monitoring upon discharge. 5.) Continue current plan of care.
[2019-01-07] MEDS: ACETAMINOPHEN 325 MG TAB PO PRN (16:01)
--- NOTE | 2019-01-07 16:36 | NUR ---
PLACEMENT Received call form Isidra with [facility]. Per Isidra patient is accepted to facility with Dr Wright. Isidra can be reached at [phone]. Phone call placed to social services manager Maykel to make aware. Maykel will work on transportation.
--- NOTE | 2019-01-07 16:38 | NUR ---
CENTRAL LINE DISCONTINUED Reviewed orders with patient and pt's mom at bedside. Sutures and dressing removed. Central line removed and pressure dressing applied. Stayed with patient for 10 mins to assure no bleeding. Patient tolerated well.
--- NOTE | 2019-01-07 16:53 | NUR ---
REPORT CALLED TO CAMERON AT [facility].
--- NOTE | 2019-01-07 17:00 | NUR ---
RN CALLED [facility] TRANSPORT ARRANGED FOR 18:00 SKATE MAKER. PATIENT AND PATIENTS MOM MADE AWARE.
[2019-01-07 17:06] VITALS: BP 129/76
--- NOTE | 2019-01-07 17:10 | NUR ---
Discharge instructions given as ordered with patient and mom at bedside. All papers signed, patient verbalized understanding.
--- NOTE | 2019-01-07 17:50 | NUR ---
[facility] Received call [facility] stating they "are running behind" will arrive between 19:30-19:45.
--- NOTE | 2019-01-07 19:05 | NUR ---
SHIFT CHANGED Care endorsed to night RN.
--- NOTE | 2019-01-07 19:30 | NUR ---
received report from day RN. pt awake, alert and oriented. no distress noted or expressed. pt family at bedside. [facility] arrived to transport [facility] to [facility]. no additional questions at time of discharge. pt and family took all belongings.
== END 2019-01-07 19:40 | DRG 917 ==
LOC: ER 19:00 → TELE 19:01 → ICU WEST 01-01 06:06 → WEST WING 01-04 17:17
PROVIDERS: ADMIT Nurse Practitioner; ATTEND Internal Medicine
PROC: 5A1945Z Respiratory Ventilation, 24-96 Consecutive Hours (ICD-10-PCS; principal; 2018-12-31)
PROC: 0BH17EZ Insertion of Endotracheal Airway into Trachea, Via Natural or Artificial Opening (ICD-10-PCS; 2018-12-31)
DX: T42.4X2A Poisoning by benzodiazepines, intentional self-harm, initial encounter (principal); G92 Toxic encephalopathy; J69.0 Pneumonitis due to inhalation of food and vomit; J96.00 Acute respiratory failure, unspecified whether with hypoxia or hypercapnia; T40.7X2A Poisoning by cannabis (derivatives), intentional self-harm, initial encounter; S61.512A Laceration without foreign body of left wrist, initial encounter; S61.511A Laceration without foreign body of right wrist, initial encounter; T42.6X2A Poisoning by other antiepileptic and sedative-hypnotic drugs, intentional self-harm, initial encounter; F31.9 Bipolar disorder, unspecified; E87.6 Hypokalemia; I95.9 Hypotension, unspecified; E66.01 Morbid (severe) obesity due to excess calories; Y93.89 Activity, other specified; Y99.8 Other external cause status; Y92.89 Other specified places as the place of occurrence of the external cause; X83.8XXA Intentional self-harm by other specified means, initial encounter
CPT/HCPCS: 36415; 36600; 51702; 70450; 71045; 72125; 80048; 80053; 80307; 80329; 81001; 82805; 83735; 84702; 85025; 85610; 85730; 87070; 87081; 87205; 90471; 90715; 93005; 94002; 94003; 94640; 96361; 96365; 96367; A4565; G0378; J0330; J0696; J1956; J2001; J2250; J2704; J3480; J3490; J7060